=== PATIENT | male | born 1935 | race African-American/Black ===

== ENCOUNTER → 2017-01-15 | Outpatient (CLI) | payer OTHER ==
[2015-11-12 17:40] VITALS: BP 114/69
[~2017-01-15] MED LIST: ALLO100T PO; CLOP75TA PO; GABA100C6 PO; HYDR-2758 PO; HYDR12.53 PO; ISOS30TA4 PO; LISI-338 PO; METO25TA4 PO; METO50TA2 PO; SIMV40TA3 PO
--- NOTE | 2017-01-15 12:53 | KCIC ---
LUMBAR SPINE MIN 4V History: Chronic left-sided sciatica Comparison: None. Findings: 5 views of the lumbar spine are submitted. There is grade 1 anterior spondylolisthesis at L4-5. There is multilevel lumbar facet degenerative change greatest of mid to inferior lumbar levels. Lumbar vertebral body stature is maintained. There is mild to moderate narrowing of the L5-S1 intervertebral disc space, minimally at L4-5. There is spondylosis L3-4 to L5-S1. Impression: 1. There is multilevel lumbar facet degenerative change. There is grade 1 anterior spondylolisthesis at L4-5. 2. There is mild to moderate degenerative disc disease L5-S1, to a lesser degree at L4-5 and L3-4. There is spondylosis at the same levels. Electronically signed by: Yrn Pathak MD (01/15/2017 12:50 PM)
== END | disposition home or self-care (01) ==
LOC: KCIC 10:48
PROVIDERS: ATTEND Family Medicine
DX: M47.896 Other spondylosis, lumbar region (principal); M51.37 Other intervertebral disc degeneration, lumbosacral region; M43.16 Spondylolisthesis, lumbar region
CPT/HCPCS: 72110

== ENCOUNTER 2017-06-25 16:09 | Emergency (ER) | payer OTHER ==
[~2017-06-25] VITALS: Ht 180.3 cm; Wt 104.3 kg
[2017-06-25 16:21] VITALS: BP 132/75
[2017-06-25] MEDS ORDERED: KETOROLAC 30 MG/ML INJ. IM ONE (16:30)
--- NOTE | 2017-06-25 16:37 | PHYS DOC ---
Past Medical History Past Medical History: CAD, High Cholesterol, Hypertension, [place] Additional Past Medical Histor: BOWEL OBSTRUCTION Past Surgical History: Other Additional Past Surgical Histo: CARDIAC STENTS ,COLON Smoking: Quit Greater Than 1 Year Alcohol Use: None Drug Use: None Adult General Chief Complaint Chief Complaint: HIP PAIN [facility] HPI Patient is a 82 year old male presents to the emergency department with complaints of left hip pain. Patient states he's had left hip pain for greater than 1 month. It exacerbated today while he was resting. Since states there is no radiation pain, no loss of function. He has no back pain. He has no known trauma. Review of Systems Review of Systems Constitutional: Denies fever or chills [] Eyes: Denies change in visual acuity, redness, or eye pain [] HENT: Denies nasal congestion or sore throat [] Respiratory: Denies cough or shortness of breath [] Cardiovascular: No additional information not addressed in HPI [] GI: Denies abdominal pain, nausea, vomiting, bloody stools or diarrhea [] : Denies dysuria or hematuria [] Musculoskeletal: Denies back pain or joint pain [] Integument: Denies rash or skin lesions []left Neurologic: Denies headache, focal weakness or sensory changes [] Endocrine: Denies polyuria or polydipsia [] All other systems were reviewed and found to be within normal limits, except as documented in this note. Current Medications Current Medications Current Medications Medications (Trade) Dose Ordered Sig/[facility] Start Time Stop Time Status Last Admin Dose Admin Ketorolac Tromethamine (Toradol) 30 mg 1X ONCE 06/25/17 16:30 06/25/17 16:31 DC 06/25/17 16:33 30 MG Allergies Allergies Allergies Coded Allergies Type Severity Reaction Last Updated Verified No Known Drug Allergies 07/07/14 No Physical Exam Physical Exam Constitutional: Well developed, well nourished, no acute distress, non-toxic appearance. [] Neck: Normal range of motion, no tenderness, supple, no stridor. [] Cardiovascular:Heart rate regular rhythm, no murmur [] Lungs & Thorax: Bilateral breath sounds clear to auscultation [] Abdomen: Bowel sounds normal, soft, no tenderness, no masses, no pulsatile masses. [] Skin: Warm, dry, no erythema, no rash. [] Back: Tender's left sacroiliac crest. No CVA tenderness are negative straight raise leg test. No saddle Anesthesia.[] Extremities: Mild tenderness to palpate in the lumbar region extending into the left gluteus, left hip and down the lateral thigh. His neurovascular's intact distally. His muscle strength is 5 over 5. No difficulty with flexion extension of the hip, the knee or the ankle. Neurologic: Alert and oriented X 3, normal motor function, normal sensory function, no focal deficits noted. [] Psychologic: Affect normal, judgement normal, mood normal. [] Current Patient Data Vital Signs Vital Signs Date Time Temp Pulse Resp B/P (MAP) Pulse Ox O2 Delivery O2 Flow Rate FiO2 06/25/17 16:21 98.4 82 19 98 Room Air 98.4 EKG EKG [] Radiology/Procedures Radiology/Procedures Left hip pelvis x-ray reviewed, no acute bony abnormalities.[] Course & Med Decision Making Course & Med Decision Making Patient apparently for Toradol injection. We'll plan for discharge home on Naprosyn. Follow-up Primary care own to 2 days sooner if problems Pertinent Labs and Imaging studies reviewed. (See chart for details) [] Dragon Disclaimer Dragon Disclaimer This electronic medical record was generated, in whole or in part, using a voice recognition dictation system. Departure Departure Impression: Primary Impression: Sciatica Disposition: 01 HOME, SELF-CARE Condition: STABLE Referrals: VON OZUNA (PCP) Patient Instructions: Sciatica Scripts Naproxen (NAPROSYN) 500 Mg Tablet 500 MG PO BID Y for PAIN, #20 TAB Prov: RENE MYERS APRN 06/25/17 Problem Qualifiers Primary Impression: Sciatica Laterality: left Qualified Codes: M54.32 - Sciatica, left side RENE MYERS [employer] Jun 25, 2017 16:37
[2017-06-25] MEDS ORDERED: NAPR500T PO (16:50)
--- NOTE | 2017-06-25 16:58 | RAD ---
HIP LEFT 2V WITH PELVIS History:pain, chronic pain getting worse last night Comparison: None Findings:Single view of the pelvis and 2 additional views of the hip are submitted. 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 There is preservation of femoral head morphology bilaterally. No acute fracture or dislocation is identified. There are likely phleboliths in the pelvis. There is vascular calcification. Impression: 1.No acute osseous abnormality is identified. 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
== END 2017-06-25 16:58 | disposition home or self-care (01) ==
LOC: ER 16:09
DX: M54.32 Sciatica, left side (principal); I25.10 Atherosclerotic heart disease of native coronary artery without angina pectoris; E78.00 Pure hypercholesterolemia, unspecified; I10 Essential (primary) hypertension; I25.2 Old myocardial infarction; Z95.5 Presence of coronary angioplasty implant and graft; Z87.891 Personal history of nicotine dependence
CPT/HCPCS: 73502; 96372; 99284; J1885